=== PATIENT | female | born 1955 | race Caucasian/White ===

== ENCOUNTER → 2018-02-26 12:04 | Outpatient (CLI) | payer MEDICAID, SELFPAY ==
[2018-02-26 12:12] LABS: Red Blood Cells-Urine 0 SEEN /hpf (0-5)
[2018-02-26 14:50] LABS: Absolute Lymphocyte Count 7.61 X10^3/ul (0.83-4.51); Absolute Neutrophil Count 5.3 X10^3/uL (2.0-7.7); Basophil# 0.06 X10^3/uL; Basophil% 0.4 % (0-1); Eosinophil# 0.37 X10^3/uL; Eosinophils% 2.6 % (0-5); Hematocrit 38.8 % (37-47); Hemoglobin 12.2 g/dl (12.0-15.0); Lymphocyte # 7.61 X10^3/ul (4.0); Lymphocyte % 53.8 % (19-41); Mean Corp Hgb Conc 31.4 g/gl (32-36); Mean Corpuscular Hgb 28.5 pg (27.0-32.0); Mean Corpuscular Volume 90.7 fL (81-99); Mean Platelet Vol. 10.8 fl (6.2-12.0); Monocyte# 0.78 X10^3/uL; Monocyte% 5.5 % (0-10); Neutrophil # 5.31 X10^3/uL (2.7-7.7); Neutrophil % 37.6 % (47-70); Platelet Count 271 K/mm3 (150-450); RBC Distribution Width CV 15.8 % (11.6-14.6); RBC Distribution Width SD 51.7 fl (35.1-43.9); Red Blood Count 4.28 M/mm3 (4.2-5.4); White Blood Count 14.2 K/mm3 (4.4-11.0)
[2018-02-26 14:54] LABS: Color, Urine Yellow (Yellow); Glucose, Dipstick Normal (Normal); Ketone-Dipstick 5 mg/dl (Negative); Leukocyte Esterase-Dipstick 100 /ul (Negative); Nitrite-Dipstick Negative (Negative); Occult Blood-Urine 10 /ul (Negative); Protein-Dipstick 30 mg/dl (Negative); Specific Gravity, Urine 1.025 (1.002-1.030); Urine Bilirubin Dipstick Negative (Negative); Urine Clarity Sl. Cloudy (Clear); Urine Urobilinogen 1 mg/dl (Normal)
[2018-02-26 14:56] LABS: Differential Indicated SCAN CRITERIA MET; POSITIVE COUNT NO; POSITIVE DIFFERENTIAL YES; POSITIVE MORPHOLOGY NO
[2018-02-26 15:03] LABS: ALB/GLOB Ratio 0.9 RATIO (0.9-2.4); AST(SGOT) 17 U/L (15-37); Alanine Aminotransfer ALT/SGPT 22 U/L (13-56); Albumin, Serum 3.6 g/dL (3.2-5.0); Alkaline Phosphatase 112 U/L (45-117); Anion Gap 7 (5-15); BUN 12 mg/dL (7-18); BUN/Creat Ratio 13.1 RATIO (10-20); Calcium,Total 8.4 mg/dL (8.5-10.1); Chloride 106 mmol/L (98-107); Cholesterol 196 mg/dL (200); Creatinine, Serum 0.92 mg/dL (0.55-1.02); EST Glomerular Filtration Rate 66 mL/min (>60); Est Glom Filt Rate - Afr Amer 80 mL/min (>60); Globulin 3.8 g/dL (2.2-4.2); Glucose 78 mg/dL (74-106); High Density Lipoprotein 57 mg/dL; Potassium 3.7 mmol/L (3.5-5.1); Protein, Total 7.4 g/dL (6.4-8.2); Sodium Level 139 mmol/L (136-145); Thyroid Stim Hormone (TSH) 0.67 uIU/mL (0.358-3.74); Triglycerides 196 mg/dL; Very Low Density Lipoprotein 39 mg/dL (5-40)
[2018-02-26 15:17] LABS: Bacteria 1+ /hpf (None Seen); Calcium Oxalate Crystals Ur 3+ /hpf (<or=2+); Hyaline Cast 0-5 SEEN /lpf (0-5); Mucous, Urine 2+ /hpf (<or=2+); Squamous Epithelial Cells - UA 0-5 SEEN /hpf (5-10); White Blood Cells 0-5 SEEN /hpf (0-5)
== END ==
PROVIDERS: Visit Provider Family Medicine
DX: E78.5 Hyperlipidemia, unspecified (principal); I10 Essential (primary) hypertension; Z72.0 Tobacco use
CPT/HCPCS: 36415; 80053; 80061; 81001; 84443; 85025

== ENCOUNTER → 2018-07-02 09:57 | Outpatient (CLI) | payer OTHER, MEDICAID, SELFPAY ==
[2018-07-02 10:22] LABS: Mucous, Urine 0 SEEN /hpf (<or=2+)
[2018-07-02 10:58] LABS: Color, Urine Yellow (Yellow); Glucose, Dipstick Normal (Normal); Ketone-Dipstick Negative (Negative); Leukocyte Esterase-Dipstick 100 /ul (Negative); Nitrite-Dipstick Negative (Negative); Occult Blood-Urine 10 /ul (Negative); Protein-Dipstick 15 mg/dl (Negative); Urine Bilirubin Dipstick Negative (Negative); Urine Clarity Sl. Cloudy (Clear); Urine Urobilinogen Normal (Normal)
[2018-07-02 11:04] LABS: Bacteria 1+ /hpf (None Seen); Red Blood Cells-Urine 0-5 SEEN /hpf (0-5); Squamous Epithelial Cells - UA 0-5 SEEN /hpf (5-10); White Blood Cells 10-25 SEEN /hpf (0-5)
[2018-07-02 11:06] LABS: Absolute Lymphocyte Count 9.89 X10^3/ul (0.83-4.51); Absolute Neutrophil Count 5.7 X10^3/uL (2.0-7.7); Basophil# 0.04 X10^3/uL; Basophil% 0.2 % (0-1); Eosinophil# 0.47 X10^3/uL; Eosinophils% 2.8 % (0-5); Hematocrit 36.5 % (37-47); Hemoglobin 11.6 g/dl (12.0-15.0); Lymphocyte # 9.89 X10^3/ul (4.0); Lymphocyte % 58.5 % (19-41); Mean Corp Hgb Conc 31.8 g/gl (32-36); Mean Corpuscular Hgb 28.6 pg (27.0-32.0); Mean Corpuscular Volume 89.9 fL (81-99); Monocyte# 0.76 X10^3/uL; Monocyte% 4.5 % (0-10); Neutrophil # 5.73 X10^3/uL (2.7-7.7); Neutrophil % 33.9 % (47-70); Platelet Count 289 K/mm3 (150-450); RBC Distribution Width CV 15.5 % (11.6-14.6); RBC Distribution Width SD 50.5 fl (35.1-43.9); Red Blood Count 4.06 M/mm3 (4.2-5.4); White Blood Count 16.9 K/mm3 (4.4-11.0)
[2018-07-02 11:07] LABS: Differential Indicated SCAN CRITERIA MET; POSITIVE COUNT NO; POSITIVE DIFFERENTIAL YES; POSITIVE MORPHOLOGY NO
[2018-07-02 11:46] LABS: AST(SGOT) 14 U/L (15-37); Alanine Aminotransfer ALT/SGPT 18 U/L (13-56); Albumin, Serum 3.5 g/dL (3.2-5.0); Alkaline Phosphatase 90 U/L (45-117); Anion Gap 6 (5-15); BUN 17 mg/dL (7-18); BUN/Creat Ratio 18.3 RATIO (10-20); Calcium,Total 9.1 mg/dL (8.5-10.1); Chloride 105 mmol/L (98-107); Cholesterol 117 mg/dL (200); Creatinine, Serum 0.93 mg/dL (0.55-1.02); EST Glomerular Filtration Rate 65 mL/min (>60); Est Glom Filt Rate - Afr Amer 79 mL/min (>60); Globulin 3.4 g/dL (2.2-4.2); Glucose 81 mg/dL (74-106); High Density Lipoprotein 56 mg/dL; Potassium 4.6 mmol/L (3.5-5.1); Protein, Total 6.9 g/dL (6.4-8.2); Sodium Level 141 mmol/L (136-145); Triglycerides 80 mg/dL; Very Low Density Lipoprotein 16 mg/dL (5-40)
== END ==
PROVIDERS: Family Provider Family Medicine; PCP Family Medicine; Referring Provider Family Medicine; Visit Provider Family Medicine
DX: I10 Essential (primary) hypertension (principal); E78.5 Hyperlipidemia, unspecified; Z72.0 Tobacco use
CPT/HCPCS: 36415; 80053; 80061; 81001; 85025

== ENCOUNTER → 2018-08-06 | Outpatient (CLI) | payer OTHER, SELFPAY ==
[2018-08-06 13:12] LABS: Absolute Lymphocyte Count 7.76 X10^3/ul (0.83-4.51); Absolute Neutrophil Count 4.9 X10^3/uL (2.0-7.7); Basophil# 0.06 X10^3/uL; Basophil% 0.4 % (0-1); Eosinophil# 0.46 X10^3/uL; Eosinophils% 3.3 % (0-5); Hematocrit 37.1 % (37-47); Hemoglobin 11.8 g/dl (12.0-15.0); Lymphocyte # 7.76 X10^3/ul (4.0); Lymphocyte % 55.8 % (19-41); Mean Corp Hgb Conc 31.8 g/gl (32-36); Mean Corpuscular Hgb 28.9 pg (27.0-32.0); Mean Corpuscular Volume 90.9 fL (81-99); Mean Platelet Vol. 10.9 fl (6.2-12.0); Monocyte# 0.68 X10^3/uL; Monocyte% 4.9 % (0-10); Neutrophil # 4.91 X10^3/uL (2.7-7.7); Neutrophil % 35.3 % (47-70); Platelet Count 245 K/mm3 (150-450); RBC Distribution Width SD 49.7 fl (35.1-43.9); Red Blood Count 4.08 M/mm3 (4.2-5.4); White Blood Count 13.9 K/mm3 (4.4-11.0)
[2018-08-06 14:54] LABS: Differential Indicated SCAN CRITERIA MET; POSITIVE COUNT NO; POSITIVE DIFFERENTIAL YES; POSITIVE MORPHOLOGY NO
[2018-08-06 15:06] LABS: Platelet Estimate ADEQUATE (ADEQ); Red Cell Morphology NORM C+C NORMAL (NORM C&C)
[2018-08-07 14:38] LABS: Pathologist Review Reviewed
== END | disposition home or self-care (01) ==
LOC: MTLAB 10:34
PROVIDERS: Family Provider Family Medicine; PCP Family Medicine; Referring Provider Family Medicine; Visit Provider Family Medicine
DX: D72.829 Elevated white blood cell count, unspecified (principal)
CPT/HCPCS: 36415; 85025

== ENCOUNTER → 2019-02-07 | Outpatient (CLI) | payer OTHER, SELFPAY ==
[2019-02-07 08:56] LABS: Mucous, Urine 0 SEEN /hpf (<or=2+)
[2019-02-07 09:21] LABS: Absolute Lymphocyte Count 12.15 X10^3/uL (0.83-4.51); Absolute Neutrophil Count 5.5 X10^3/uL (2.0-7.7); Basophil# 0.05 X10^3/uL; Basophil% 0.3 % (0-1); Eosinophil# 0.43 X10^3/uL; Eosinophils% 2.3 % (0-5); Hematocrit 38.2 % (37-47); Hemoglobin 12.1 g/dL (12.0-15.0); Lymphocyte # 12.15 X10^3/ul (4.0); Lymphocyte % 64.6 % (19-41); Mean Corp Hgb Conc 31.7 g/dL (32-36); Mean Corpuscular Hgb 28.7 pg (27.0-32.0); Mean Corpuscular Volume 90.7 fL (81-99); Mean Platelet Vol. 10.2 fl (6.2-12.0); Monocyte# 0.64 X10^3/uL; Monocyte% 3.4 % (0-10); NRBC Flagged by Analyzer 0 % (0-5); Neutrophil # 5.47 X10^3/uL (2.7-7.7); Neutrophil % 29.1 % (47-70); POSITIVE DIFFERENTIAL YES; POSITIVE MORPHOLOGY YES; Platelet Count 232 K/mm3 (150-450); RBC Distribution Width CV 15.1 % (11.6-14.6); RBC Distribution Width SD 50.3 fl (35.1-43.9); Red Blood Count 4.21 M/mm3 (4.2-5.4); White Blood Count 18.8 K/mm3 (4.4-11.0)
[2019-02-07 09:23] LABS: Color, Urine Yellow (Yellow); Glucose, Dipstick Normal (Normal); Ketone-Dipstick Negative (Negative); Leukocyte Esterase-Dipstick 500 /ul (Negative); Nitrite-Dipstick Negative (Negative); Occult Blood-Urine 25 /ul (Negative); Protein-Dipstick 30 mg/dl (Negative); Urine Bilirubin Dipstick Negative (Negative); Urine Clarity Clear (Clear); Urine Urobilinogen Normal (Normal)
[2019-02-07 09:24] LABS: Differential Indicated SCAN CRITERIA MET
[2019-02-07 09:30] LABS: Bacteria 1+ /hpf (None Seen); Red Blood Cells-Urine 0-5 SEEN /hpf (0-5); Squamous Epithelial Cells - UA 0-5 SEEN /hpf (5-10); White Blood Cells 25-50 SEEN /hpf (0-5)
[2019-02-07 09:49] LABS: Differential Comment SCANNED; Reactive Lymphocyte 1+
[2019-02-07 10:07] LABS: AST(SGOT) 16 U/L (15-37); Alanine Aminotransfer ALT/SGPT 18 U/L (13-56); Albumin, Serum 3.6 g/dL (3.2-5.0); Alkaline Phosphatase 82 U/L (45-117); Anion Gap 4 (5-15); BUN 16 mg/dL (7-18); BUN/Creat Ratio 15.7 RATIO (10-20); Chloride 109 mmol/L (98-107); Cholesterol 113 mg/dL (200); Creatinine, Serum 1.02 mg/dL (0.55-1.02); EST Glomerular Filtration Rate 58 mL/min (>60); Est Glom Filt Rate - Afr Amer 70 mL/min (>60); Globulin 3.5 g/dL (2.2-4.2); Glucose 94 mg/dL (74-106); High Density Lipoprotein 59 mg/dL; Potassium 4.4 mmol/L (3.5-5.1); Protein, Total 7.1 g/dL (6.4-8.2); Sodium Level 140 mmol/L (136-145); Triglycerides 66 mg/dL; Very Low Density Lipoprotein 13 mg/dL (5-40)
== END | disposition home or self-care (01) ==
LOC: LAB 08:37
PROVIDERS: Family Provider Family Medicine; PCP Family Medicine; Referring Provider Family Medicine; Visit Provider Family Medicine
DX: E78.5 Hyperlipidemia, unspecified (principal); I10 Essential (primary) hypertension; Z72.0 Tobacco use
CPT/HCPCS: 36415; 80053; 80061; 81001; 85025

== ENCOUNTER → 2019-02-11 | Outpatient (CLI) | payer OTHER, SELFPAY ==
[2019-02-11 12:23] LABS: Absolute Lymphocyte Count 10.95 X10^3/uL (0.83-4.51); Absolute Neutrophil Count 6.2 X10^3/uL (2.0-7.7); Basophil# 0.07 X10^3/uL; Basophil% 0.4 % (0-1); Eosinophil# 0.42 X10^3/uL; Eosinophils% 2.3 % (0-5); Hematocrit 37.9 % (37-47); Hemoglobin 12.2 g/dL (12.0-15.0); Lymphocyte # 10.95 X10^3/ul (4.0); Lymphocyte % 59.5 % (19-41); Mean Corp Hgb Conc 32.2 g/dL (32-36); Mean Corpuscular Hgb 29.2 pg (27.0-32.0); Mean Corpuscular Volume 90.7 fL (81-99); Mean Platelet Vol. 10.7 fl (6.2-12.0); Monocyte# 0.76 X10^3/uL; Monocyte% 4.1 % (0-10); NRBC Flagged by Analyzer 0 % (0-5); Neutrophil # 6.16 X10^3/uL (2.7-7.7); Neutrophil % 33.5 % (47-70); POSITIVE DIFFERENTIAL YES; POSITIVE MORPHOLOGY YES; Platelet Count 241 K/mm3 (150-450); RBC Distribution Width CV 15.1 % (11.6-14.6); Red Blood Count 4.18 M/mm3 (4.2-5.4); White Blood Count 18.4 K/mm3 (4.4-11.0)
[2019-02-11 12:25] LABS: Differential Indicated SCAN CRITERIA MET
[2019-02-11 12:54] LABS: Anion Gap 7 (5-15); BUN 16 mg/dL (7-18); BUN/Creat Ratio 15.4 RATIO (10-20); Calcium,Total 9.2 mg/dL (8.5-10.1); Chloride 106 mmol/L (98-107); Creatinine, Serum 1.04 mg/dL (0.55-1.02); EST Glomerular Filtration Rate 57 mL/min (>60); Est Glom Filt Rate - Afr Amer 69 mL/min (>60); Glucose 67 mg/dL (74-106); Potassium 4.4 mmol/L (3.5-5.1); Sodium Level 143 mmol/L (136-145)
== END | disposition home or self-care (01) ==
LOC: MFPLAB 10:46
PROVIDERS: Family Provider Family Medicine; PCP Family Medicine; Referring Provider Family Medicine; Visit Provider Family Medicine
DX: R94.4 Abnormal results of kidney function studies (principal); D72.829 Elevated white blood cell count, unspecified
CPT/HCPCS: 36415; 80048; 85025

== ENCOUNTER → 2019-09-12 | Outpatient (CLI) | payer OTHER, SELFPAY ==
[2019-09-12 08:45] LABS: Absolute Lymphocyte Count 14.26 X10^3/uL (0.83-4.51); Basophil# 0.08 X10^3/uL; Basophil% 0.4 % (0-1); Eosinophil# 0.52 X10^3/uL; Eosinophils% 2.4 % (0-5); Hematocrit 40.8 % (37-47); Hemoglobin 12.9 g/dL (12.0-15.0); Lymphocyte # 14.26 X10^3/ul (4.0); Lymphocyte % 65.6 % (19-41); Mean Corp Hgb Conc 31.6 g/dL (32-36); Mean Corpuscular Hgb 29.5 pg (27.0-32.0); Mean Corpuscular Volume 93.4 fL (81-99); Mean Platelet Vol. 10.4 fl (6.2-12.0); Monocyte# 0.81 X10^3/uL; Monocyte% 3.7 % (0-10); NRBC Flagged by Analyzer 0 % (0-5); Neutrophil # 6.01 X10^3/uL (2.7-7.7); Neutrophil % 27.7 % (47-70); POSITIVE DIFFERENTIAL YES; POSITIVE MORPHOLOGY YES; Platelet Count 257 K/mm3 (150-450); RBC Distribution Width CV 15.3 % (11.6-14.6); RBC Distribution Width SD 52.8 fl (35.1-43.9); Red Blood Count 4.37 M/mm3 (4.2-5.4); White Blood Count 21.7 K/mm3 (4.4-11.0)
[2019-09-12 09:00] LABS: ALB/GLOB Ratio 0.9 RATIO (0.9-2.4); AST(SGOT) 14 U/L (15-37); Alanine Aminotransfer ALT/SGPT 21 U/L (13-56); Albumin, Serum 3.6 g/dL (3.2-5.0); Alkaline Phosphatase 84 U/L (45-117); Anion Gap 6 (5-15); BUN 31 mg/dL (7-18); BUN/Creat Ratio 23.7 RATIO (10-20); Calcium,Total 8.9 mg/dL (8.5-10.1); Chloride 105 mmol/L (98-107); Cholesterol 128 mg/dL (200); Creatinine, Serum 1.31 mg/dL (0.55-1.02); EST Glomerular Filtration Rate 44 mL/min (>60); Est Glom Filt Rate - Afr Amer 53 mL/min (>60); Globulin 3.8 g/dL (2.2-4.2); Glucose 97 mg/dL (74-106); High Density Lipoprotein 54 mg/dL; Potassium 3.9 mmol/L (3.5-5.1); Protein, Total 7.4 g/dL (6.4-8.2); Sodium Level 140 mmol/L (136-145); Triglycerides 106 mg/dL; Very Low Density Lipoprotein 21 mg/dL (5-40)
[2019-09-12 09:18] LABS: Differential Indicated SCAN CRITERIA MET
[2019-09-12 09:25] LABS: Differential Comment SCANNED
[2019-09-12 09:26] LABS: Reactive Lymphocyte 2+
== END | disposition home or self-care (01) ==
LOC: LAB 07:55
PROVIDERS: PCP Family Medicine; Referring Provider Family Medicine; Visit Provider Family Medicine
DX: E78.5 Hyperlipidemia, unspecified (principal); I10 Essential (primary) hypertension; D72.820 Lymphocytosis (symptomatic)
CPT/HCPCS: 36415; 80053; 80061; 85025

== ENCOUNTER → 2019-09-17 16:41 | Outpatient (CLI) | payer OTHER, SELFPAY ==
[2019-09-18 15:31] LABS: Absolute Lymphocyte Count 12.65 X10^3/uL (0.83-4.51); Absolute Neutrophil Count 5.8 X10^3/uL (2.0-7.7); Basophil# 0.09 X10^3/uL; Basophil% 0.5 % (0-1); Eosinophil# 0.41 X10^3/uL; Eosinophils% 2.1 % (0-5); Hematocrit 39.9 % (37-47); Hemoglobin 12.4 g/dL (12.0-15.0); Lymphocyte # 12.65 X10^3/ul (4.0); Lymphocyte % 63.9 % (19-41); Mean Corp Hgb Conc 31.1 g/dL (32-36); Mean Corpuscular Hgb 29.4 pg (27.0-32.0); Mean Corpuscular Volume 94.5 fL (81-99); Monocyte# 0.81 X10^3/uL; Monocyte% 4.1 % (0-10); NRBC Flagged by Analyzer 0 % (0-5); Neutrophil # 5.78 X10^3/uL (2.7-7.7); Neutrophil % 29.1 % (47-70); POSITIVE DIFFERENTIAL YES; POSITIVE MORPHOLOGY YES; Platelet Count 256 K/mm3 (150-450); RBC Distribution Width CV 15.6 % (11.6-14.6); RBC Distribution Width SD 53.9 fl (35.1-43.9); Red Blood Count 4.22 M/mm3 (4.2-5.4); White Blood Count 19.8 K/mm3 (4.4-11.0)
[2019-09-18 18:25] LABS: Differential Indicated SCAN CRITERIA MET
[2019-09-18 18:26] LABS: Platelet Estimate ADEQUATE (ADEQ); Red Cell Morphology NORM C+C NORMAL (NORM C&C)
[2019-09-18 18:27] LABS: Smudge Cells 1+
[2019-09-21 12:11] LABS: Pathologist Review Reviewed
== END ==
PROVIDERS: PCP Family Medicine; Referring Provider Family Medicine; Visit Provider Family Medicine
DX: D72.820 Lymphocytosis (symptomatic) (principal)
CPT/HCPCS: 36415; 85025

== ENCOUNTER → 2019-09-29 | Outpatient (CLI) | payer OTHER, SELFPAY ==
--- NOTE | 2019-09-29 08:00 | US_ITS ---
STUDY: RENAL ULTRASOUND - COMPLETE REASON FOR EXAM: Female, 63 years old. CK elevated BUN/creatinine TECHNIQUE: Ultrasound evaluation of the kidneys was performed with real-time and static moreno-scale imaging. COMPARISON: None. FINDINGS: RIGHT KIDNEY: Normal location of the right kidney, which is normal in size. The right kidney measures 10.6 x 3.5 x 3.7 cm. There is a normal cortex of the right kidney. The renal cortex measures 1.2 cm. There is a simple 1.7 x 1.6 x 1.5 cm cyst. There are no right renal calculi. There is no right hydronephrosis. DISTAL RIGHT URETER: There is non-visualization of the distal right ureter. There is no demonstrated right ureterovesical junction calculus. There is a visualized right ureteral jet. LEFT KIDNEY: Normal location of the left kidney, which is normal in size. The left kidney measures 9.8 x 4.9 x 4.6 cm. There is a normal cortex of the left kidney. The renal cortex measures 1.3 cm. There is no left renal mass or cyst. There are no left renal calculi. There is no left hydronephrosis. DISTAL LEFT URETER: There is non-visualization of the distal left ureter. There is no demonstrated left ureterovesical junction calculus. There is a visualized left ureteral jet. AORTA: There is no elongation or tortuosity of the abdominal aorta. I.V.C.: The IVC is patent. BLADDER: The bladder is sonographically normal Incidental note is made of a 3 x 2 x 2.3 cm right ovarian cyst. US/Kidney and Bladder IMPRESSION: No obstructive uropathy or suspicious solid lesion. Simple right renal cyst, no specific follow-up is needed Cloth Trimmer Hand also noted a right ovarian cyst, given the patient''s age, follow-up dedicated pelvic ultrasound recommended for more thorough evaluation. Electronically Signed: Matty Villagomez MD at 9:06 EDT , Service support ,
== END | disposition home or self-care (01) ==
LOC: US 07:59
PROVIDERS: PCP Family Medicine; Referring Provider Family Medicine; Visit Provider Family Medicine
DX: N18.3 Chronic kidney disease, stage 3 (moderate) (principal)
CPT/HCPCS: 76770

== ENCOUNTER → 2019-10-02 | Outpatient (CLI) | payer OTHER, SELFPAY ==
--- NOTE | 2019-10-02 14:59 | US_ITS ---
STUDY: ULTRASOUND OF THE FEMALE PELVIS - COMPLETE REASON FOR EXAM: Female, 63 years old. RT OVARIAN CYST LMP: TECHNIQUE: Transabdominal and Transvaginal TECHNICAL QUALITY: Adequate. COMPARISON: None. FINDINGS: The uterus is anteverted and is in a midline position. The uterus measures 6.6 x 3.9 x 2.5 cm. Normal uterine cervix. The endometrium measures 2 mm in thickness, and is hyperechoic. There is no demonstrated endometrial mass. There is no demonstrated myometrial mass. I.U.D. - The patient does not have an I.U.D. The right ovary is visualized. The right ovary measures 3.5 x 2.5 x 2.3 cm. Right ovary cyst measuring 3.0 x 2.1 x 2.1 cm. There is no visualized right adnexal mass or complex lesion. There is normal arterial and normal venous vascularity. The left ovary is visualized. The left ovary measures 1.4 x 1.1 x 0.8 cm. There is no left ovarian cyst or ovarian mass. There is no visualized left adnexal mass or complex lesion. There is normal arterial and normal venous vascularity. There is no fluid in the cul-de-sac. The pre void volume of the bladder was 191.6 ml. Polycystic ovary disease: No. US/Transvaginal Non- IMPRESSION: Right ovary cyst measuring 3.0 x 2.1 x 2.1 cm. Electronically Signed: Harley Montez MD at 21:04 EDT Tel , Service support ,
--- NOTE | 2019-10-02 14:59 | US_ITS ---
STUDY: ULTRASOUND OF THE FEMALE PELVIS - COMPLETE REASON FOR EXAM: Female, 63 years old. RT OVARIAN CYST LMP: TECHNIQUE: Transabdominal and Transvaginal TECHNICAL QUALITY: Adequate. COMPARISON: None. FINDINGS: The uterus is anteverted and is in a midline position. The uterus measures 6.6 x 3.9 x 2.5 cm. Normal uterine cervix. The endometrium measures 2 mm in thickness, and is hyperechoic. There is no demonstrated endometrial mass. There is no demonstrated myometrial mass. I.U.D. - The patient does not have an I.U.D. The right ovary is visualized. The right ovary measures 3.5 x 2.5 x 2.3 cm. Right ovary cyst measuring 3.0 x 2.1 x 2.1 cm. There is no visualized right adnexal mass or complex lesion. There is normal arterial and normal venous vascularity. The left ovary is visualized. The left ovary measures 1.4 x 1.1 x 0.8 cm. There is no left ovarian cyst or ovarian mass. There is no visualized left adnexal mass or complex lesion. There is normal arterial and normal venous vascularity. There is no fluid in the cul-de-sac. The pre void volume of the bladder was 191.6 ml. Polycystic ovary disease: No. US/Pelvic (Non ) IMPRESSION: Right ovary cyst measuring 3.0 x 2.1 x 2.1 cm. Electronically Signed: Harley Montez MD at 21:04 EDT Tel , Service support ,
== END | disposition home or self-care (01) ==
LOC: US 14:56
PROVIDERS: PCP Family Medicine; Referring Provider Family Medicine; Visit Provider Family Medicine
DX: N83.209 Unspecified ovarian cyst, unspecified side (principal)
CPT/HCPCS: 76830; 76856

== ENCOUNTER → 2019-10-05 | Outpatient (CLI) | payer OTHER, SELFPAY ==
--- NOTE | 2019-10-05 08:06 | RDU_ITS ---
Reason For Study: CKD Right Renal Artery Left Renal Artery Right renal artery ostium Left renal artery ostium 141.2/35.8 256.8/57.1 RSV/EDV. PSV/EDV. Right renal artery proximal Left renal artery proximal PSV/EDV 303.2/71.1 PSV/EDV. 94.9/24.2 . Right renal artery mid 188.8/40.3 Left renal artery mid 91.5/31 PSV/EDV. PSV/EDV . Right renal artery distal Left renal artery distal 63.3/21.5 112.3/39.3 PSV/EDV. PSV/EDV. Right RAR 3.72. Left RAR 1.73. Right Renal Parenchyma Left Renal Parenchyma Upper Pole Medula 35.2/14.3 Left upper pole medulla 29.8/9 PSV/EDV. PSV/EDV . Right upper pole medulla EDR 0.41 . Left upper pole medulla EDR 0.30 . Right upper pole medulla R.I. Left upper pole medulla R.I. 0.70 . 0.59 . UP Cortex 21.3/5.9 PSV/EDV. Upper Kasi Cortx 24.8/8.8 PSV/EDV. Left upper pole cortex EDR 0.28 . Right upper pole cortex EDR 0.35 . Left upper pole cortex R.I. 0.72 . Right upper pole cortex R.I. 0.65 . Left lower Pole medulla 33.5/9.6 Right lower Pole medulla 36.4/14.3 PSV/EDV . PSV/EDV . Left lower pole medulla EDR 0.29 . Right lower pole medulla EDR 0.39 . Left lower pole medulla R.I. 0.71 . Right lower pole medulla R.I. Lower Pole Cortx 21.3/5.9 PSV/EDV. 0.61 . Left lower pole cortex EDR 0.28 . Lower Pole Cortex 23.5/10 PSV/EDV. Left lower pole cortex R.I. 0.72 . Right lower pole cortex EDR 0.43 . Left Renal Hilar Right lower pole cortex R.I. 0.57 . LT Hilar avg 59.9/8.8 PSV/EDV . Right Renal Hilar Left hilar acceleration time 60 Right Hilar avg 37.6/12.5 PSV/EDV. m/sec. Right hilar acceleration time 30 Left Renal Dimensions m/sec. Left kidney size 9.37 cm . Right Renal Dimensions Left cortical dimension 1.28 cm . Right kidney size 10.26 cm . Right cortical dimension 1.32 cm . Aorta Proximal abdominal aorta 1.71 x 1.71 cm . Proximal abdominal aorta peak systolic velocity is 81.4 cm/sec . Distal abdominal aorta 1.91 x 2.12 cm . Distal abdominal aorta peak systolic velocity is 83.9 cm/sec . Interpretation Summary Dimensions of the intra-abdominal aorta appear normal, without evidence of aneurysmal dilatation. Right renal artery velocities are elevated. Left renal artery velocities are normal. Acceleration times are normal bilaterally. The right renal-aortic ratio is elevated. The left renal-aortic ratio is normal. There is evidence of hemodynamically significant stenosis on the right , greater than 60%. There is no evidence of left renal artery stenosis. Renovascular resistance appears normal on the right. Renovascular resistance appears elevated on the left. Cortical dimensions are bilaterally normal. Kidneys appear normal in size bilaterally. Ordering Physician: David Patel Referring Physician: David Patel Performed By: Alisa Franz RVT
== END | disposition home or self-care (01) ==
LOC: CVS 08:01
PROVIDERS: PCP Family Medicine; Referring Provider Family Medicine; Visit Provider Family Medicine
DX: N18.3 Chronic kidney disease, stage 3 (moderate) (principal)
CPT/HCPCS: 93975

== ENCOUNTER → 2019-12-22 | Outpatient (CLI) | payer OTHER, SELFPAY ==
[2019-11-30 14:36] VITALS: BMI 26.6
[2019-12-22 16:32] LABS: Mucous, Urine 0 SEEN /hpf (<or=2+); Red Blood Cells-Urine 0 SEEN /hpf (0-5)
[2019-12-22 17:43] LABS: Absolute Lymphocyte Count 11.63 X10^3/uL (0.83-4.51); Absolute Neutrophil Count 5.7 X10^3/uL (2.0-7.7); Basophil# 0.07 X10^3/uL; Basophil% 0.4 % (0-1); Eosinophil# 0.45 X10^3/uL; Eosinophils% 2.4 % (0-5); Hematocrit 37.9 % (37-47); Lymphocyte # 11.63 X10^3/ul (4.0); Lymphocyte % 62.3 % (19-41); Mean Corp Hgb Conc 31.7 g/dL (32-36); Mean Corpuscular Hgb 29.6 pg (27.0-32.0); Mean Corpuscular Volume 93.3 fL (81-99); Mean Platelet Vol. 11.3 fl (6.2-12.0); Monocyte# 0.75 X10^3/uL; NRBC Flagged by Analyzer 0 % (0-5); Neutrophil # 5.73 X10^3/uL (2.7-7.7); Neutrophil % 30.6 % (47-70); POSITIVE DIFFERENTIAL YES; POSITIVE MORPHOLOGY YES; Platelet Count 252 K/mm3 (150-450); RBC Distribution Width CV 13.5 % (11.6-14.6); Red Blood Count 4.06 M/mm3 (4.2-5.4); White Blood Count 18.7 K/mm3 (4.4-11.0)
[2019-12-22 17:46] LABS: Color, Urine Yellow (Yellow); Glucose, Dipstick Normal (Normal); Ketone-Dipstick Negative (Negative); Leukocyte Esterase-Dipstick 100 /ul (Negative); Nitrite-Dipstick Positive (Negative); Occult Blood-Urine 10 /ul (Negative); Protein-Dipstick 30 mg/dl (Negative); Specific Gravity, Urine 1.015 (1.002-1.030); Urine Bilirubin Dipstick Negative (Negative); Urine Clarity Sl. Cloudy (Clear); Urine Urobilinogen 1 mg/dl (Normal)
[2019-12-22 17:53] LABS: AST(SGOT) 17 U/L (15-37); Alanine Aminotransfer ALT/SGPT 20 U/L (13-56); Albumin, Serum 3.7 g/dL (3.2-5.0); Alkaline Phosphatase 84 U/L (45-117); Anion Gap 5 (5-15); BUN 22 mg/dL (7-18); Chloride 105 mmol/L (98-107); EST Glomerular Filtration Rate 53 mL/min (>60); Est Glom Filt Rate - Afr Amer 64 mL/min (>60); Globulin 3.8 g/dL (2.2-4.2); Glucose 91 mg/dL (74-106); Potassium 3.9 mmol/L (3.5-5.1); Protein, Total 7.5 g/dL (6.4-8.2); Sodium Level 139 mmol/L (136-145)
[2019-12-22 17:59] LABS: White Blood Cells 10-25 SEEN /hpf (0-5)
[2019-12-22 18:00] LABS: Bacteria 3+ /hpf (None Seen); Squamous Epithelial Cells - UA 0-5 SEEN /hpf (5-10)
[2019-12-22 18:22] LABS: Protein, Urine (Random) 53.4 mg/dL (<11.9); Protein:Creat Ratio 366 mg/g CRE (0-200)
[2019-12-22 18:38] LABS: Vitamin D,25 Hydroxy 31.2 ng/mL
[2019-12-22 18:52] LABS: Differential Indicated SCAN CRITERIA MET
[2019-12-22 19:18] LABS: Platelet Estimate ADEQUATE (ADEQ); Reactive Lymphocyte 1+; Red Cell Morphology N CHROM NORMAL (NORM C&C)
[2019-12-22 19:19] LABS: Anisocytosis RARE; Macrocytosis RARE
[2019-12-23 08:37] LABS: PTHIN 38.1 pg/mL (18.4-80.1)
[2019-12-23 13:41] LABS: Pathologist Review Reviewed
== END | disposition home or self-care (01) ==
LOC: MFPLAB 16:30
PROVIDERS: PCP Family Medicine; Referring Provider Family Medicine; Visit Provider Family Medicine
DX: I12.9 Hypertensive chronic kidney disease with stage 1 through stage 4 chronic kidney disease, or unspecified chronic kidney disease (principal); N18.3 Chronic kidney disease, stage 3 (moderate)
CPT/HCPCS: 36415; 80053; 81001; 82306; 82570; 83970; 84156; 85025

== ENCOUNTER → 2019-12-24 | Outpatient (CLI) | payer OTHER, SELFPAY ==
[2019-11-30 14:36] VITALS: BMI 26.6
--- NOTE | 2019-12-24 18:27 | US_ITS ---
STUDY: ULTRASOUND OF THE FEMALE PELVIS - COMPLETE REASON FOR EXAM: Female, 64 years old. F/U RTO CYST LMP: Postmenopausal. TECHNIQUE: Transabdominal and Transvaginal TECHNICAL QUALITY: Adequate. COMPARISON: Comparison is made with prior study dated 10/02/2019. FINDINGS: The uterus is anteverted and is in a midline position. The uterus measures 6.9 cm x 4.6 cm x 2.3 cm. Normal uterine cervix. The endometrium measures 2.0 mm in thickness, and is hyperechoic. There is no demonstrated endometrial mass. There is no demonstrated myometrial mass. I.U.D. - The patient does not have an I.U.D. The right ovary is visualized. The right ovary measures 4.1 cm x 3 cm x 2.7 cm. There is a 3.1 cm x 2.4 cm x 2.3 cm simple cyst. This is essentially unchanged. There is no visualized right adnexal mass or complex lesion. There is normal arterial and normal venous vascularity. The left ovary is non-visualized. There is no fluid in the cul-de-sac. The pre void volume of the bladder was 105 ml. Polycystic ovary disease: No. US/Pelvic (Non ) IMPRESSION: Stable 3.1 cm x 2.4 cm x 2.3 cm right ovarian cyst. Electronically Signed: Dale Galvan, at 8:56 EDT , Service support ,
--- NOTE | 2019-12-24 18:40 | US_ITS ---
STUDY: ULTRASOUND OF THE FEMALE PELVIS - COMPLETE REASON FOR EXAM: Female, 64 years old. F/U RTO CYST LMP: Postmenopausal. TECHNIQUE: Transabdominal and Transvaginal TECHNICAL QUALITY: Adequate. COMPARISON: Comparison is made with prior study dated 10/02/2019. FINDINGS: The uterus is anteverted and is in a midline position. The uterus measures 6.9 cm x 4.6 cm x 2.3 cm. Normal uterine cervix. The endometrium measures 2.0 mm in thickness, and is hyperechoic. There is no demonstrated endometrial mass. There is no demonstrated myometrial mass. I.U.D. - The patient does not have an I.U.D. The right ovary is visualized. The right ovary measures 4.1 cm x 3 cm x 2.7 cm. There is a 3.1 cm x 2.4 cm x 2.3 cm simple cyst. This is essentially unchanged. There is no visualized right adnexal mass or complex lesion. There is normal arterial and normal venous vascularity. The left ovary is non-visualized. There is no fluid in the cul-de-sac. The pre void volume of the bladder was 105 ml. Polycystic ovary disease: No. US/Transvaginal Non- IMPRESSION: Stable 3.1 cm x 2.4 cm x 2.3 cm right ovarian cyst. Electronically Signed: Dale Galvan, at 8:56 EDT , Service support ,
== END | disposition home or self-care (01) ==
LOC: US 18:27
PROVIDERS: PCP Family Medicine; Referring Provider Obstetrics & Gynecology; Visit Provider Obstetrics & Gynecology
DX: N83.291 Other ovarian cyst, right side (principal)
CPT/HCPCS: 76830; 76856

== ENCOUNTER → 2020-01-23 | Outpatient (CLI) | payer OTHER, SELFPAY ==
[2019-11-30 14:36] VITALS: BMI 26.6
[2020-01-23 08:57] LABS: Absolute Lymphocyte Count 10.48 X10^3/uL (0.83-4.51); Absolute Neutrophil Count 4.4 X10^3/uL (2.0-7.7); Basophil# 0.07 X10^3/uL; Basophil% 0.4 % (0-1); Eosinophil# 0.48 X10^3/uL; Hemoglobin 12.4 g/dL (12.0-15.0); Lymphocyte # 10.48 X10^3/ul (4.0); Lymphocyte % 64.9 % (19-41); Mean Corpuscular Hgb 29.1 pg (27.0-32.0); Mean Corpuscular Volume 93.9 fL (81-99); Mean Platelet Vol. 10.8 fl (6.2-12.0); Monocyte% 4.3 % (0-10); NRBC Flagged by Analyzer 0 % (0-5); Neutrophil # 4.38 X10^3/uL (2.7-7.7); Neutrophil % 27.2 % (47-70); POSITIVE DIFFERENTIAL YES; POSITIVE MORPHOLOGY YES; Platelet Count 257 K/mm3 (150-450); RBC Distribution Width CV 14.7 % (11.6-14.6); RBC Distribution Width SD 51.2 fl (35.1-43.9); Red Blood Count 4.26 M/mm3 (4.2-5.4); White Blood Count 16.1 K/mm3 (4.4-11.0)
[2020-01-23 09:18] LABS: Anion Gap 5 (5-15); BUN 20 mg/dL (7-18); BUN/Creat Ratio 18.2 RATIO (10-20); Calcium,Total 8.8 mg/dL (8.5-10.1); Chloride 107 mmol/L (98-107); EST Glomerular Filtration Rate 53 mL/min (>60); Est Glom Filt Rate - Afr Amer 64 mL/min (>60); Glucose 91 mg/dL (74-106); Potassium 4.2 mmol/L (3.5-5.1); Sodium Level 141 mmol/L (136-145)
[2020-01-23 09:23] LABS: Differential Indicated SCAN CRITERIA MET
[2020-01-23 10:25] LABS: Atypical Lymphocyte 1+ %; Platelet Estimate ADEQUATE (ADEQ)
[2020-01-25 03:53] LABS: Cancer Antigen 125 7.1 U/mL (0.0-38.1)
== END | disposition home or self-care (01) ==
LOC: LAB 08:14
PROVIDERS: PCP Family Medicine; Referring Provider Obstetrics & Gynecology; Visit Provider Obstetrics & Gynecology
DX: N83.209 Unspecified ovarian cyst, unspecified side (principal); R94.4 Abnormal results of kidney function studies; D72.829 Elevated white blood cell count, unspecified
CPT/HCPCS: 36415; 80048; 85025; 86304

== ENCOUNTER → 2020-05-30 | Outpatient (CLI) | payer OTHER, SELFPAY ==
[2020-05-30 14:04] VITALS: BMI 28.3
[2020-06-02 15:44] LABS: HPV APTIMA, High Risk Negative (Negative)
== END | disposition home or self-care (01) ==
LOC: LABSPEC 17:03
PROVIDERS: PCP Family Medicine; Referring Provider Obstetrics & Gynecology; Visit Provider Obstetrics & Gynecology
DX: Z12.4 Encounter for screening for malignant neoplasm of cervix (principal)
CPT/HCPCS: 87624; 88175; G0145

== ENCOUNTER → 2020-05-31 14:19 | Outpatient (CLI) | payer OTHER, SELFPAY ==
[2019-11-30 14:36] VITALS: BMI 26.6
[2020-05-30 14:04] VITALS: BMI 28.3
--- NOTE | 2020-05-31 14:21 | BI_ITS ---
MAMMOGRAPHY - BILATERAL SCREENING REASON FOR EXAM: Female, 64 years old. Routine annual screening examination. PERTINENT HISTORY: Non-contributory. TECHNIQUE: Digital bilateral breast conor (3D mammographic acquisition) in the CC and MLO projections. 2-D mediolateral oblique (MLO) and craniocaudad (CC) views of both breasts were obtained. CAD: Full Field Digital Mammography with Computer Added Detection was performed. COMPARISON: No comparison mammograms available at this time. If any prior films become available, an addendum to this report can be generated. FINDINGS: Breast Composition: There are scattered areas of fibroglandular density. There are no dominant masses or suspicious calcifications. Small benign-appearing bilateral axillary lymph nodes. No other significant abnormalities are identified. BI/SCRN MAMM (CAD)W/CONOR BILAT IMPRESSION: Negative screening mammogram. Yearly followup mammogram recommended. (A) ASSESSMENT CATEGORY: BIRADS Category 2: Benign. A letter regarding these results will be sent to the patient by the facility within 30 days. Approximately 10% of breast cancers are not detected by mammography. A normal mammogram should not delay biopsy of a clinically suspicious abnormality. [id number] Electronically Signed: Dale Galvan MD at 15:50 EST , Service support ,
--- NOTE | 2020-05-31 14:34 | BD_ITS ---
STUDY: DUAL ENERGY X-RAY ABSORPTIOMETRY / DXA REASON FOR EXAM: Female, 64 years old. SENIOR HRIS ANALYST -- SMOKER -- USES STEROID INHALER PRN -- TAKE SHCTZ -- TAKES MULTIVITAMIN -- DOES MODERATE AMOUNT OF EXERCISE -- HX OF RIGHT WRIST FX -- KHOI OF 3 INCHES TECHNIQUE: Bone Mineral Density (BMD) measurements of lumbar spine and bilateral hips were obtained. COMPARISON: None. FINDINGS: Lumbar Spine (L1-L4): g/cm2 (1.086) / T-score (-1.0) / Z-score (0.6) Findings are suggestive of normal bone density with a low fracture risk. Left Femur Total: g/cm2 (0.835) / T-score (-1.4) / Z-score (-0.2) Left Femoral Neck: g/cm2 (0.857) / T-score (-1.3) / Z-score (0.1) Right Femur Total: g/cm2 (0.815) / T-score (-1.5) / Z-score (-0.4) Right Femoral Neck: g/cm2 (0.776) / T-score (-1.9) / Z-score (-0.5) BD/Dexa Bone Density Study IMPRESSION: The patient is considered osteopenic as outlined below according to World Rashid Organization (WHO) criteria with a moderate fracture risk. Reference Information: The T-score is the number of standard deviations above or below the standard which is normal for young adults at their peak bone mineral density. The World Health Organization (WHO) interprets the T-scores as follows: Above -1 Normal bone density Between -1 and -2.5 Osteopenia Equal to / or below -2.5 Osteoporosis As a practical clinical guideline, osteopenia may be graded as follows: Mild -1 through -1.5 Moderate -1.6 through -2.0 Severe -2.1 through -2.4 The Z-score is the number of standard deviations above or below age-matched controls. A Z-score of less than -1.5 would be considered abnormal. References: 1. NIH Osteoporosis and Related Bone Diseases www osteo.org 2. International Society for Clinical Densitometry www iscd.org 3. National Osteoporosis Foundation www nof.org Electronically Signed: Dale Galvan MD at 14:26 EST , Service support ,
== END ==
PROVIDERS: PCP Family Medicine; Referring Provider Family Medicine; Visit Provider Family Medicine
DX: Z78.0 Asymptomatic menopausal state (principal); Z12.31 Encounter for screening mammogram for malignant neoplasm of breast
CPT/HCPCS: 77063; 77067; 77080

== ENCOUNTER 2020-06-07 06:14 | Day surgery (SDC) | payer OTHER, SELFPAY ==
[2019-11-30 14:36] VITALS: BMI 26.6
[2020-05-30 14:04] VITALS: BMI 28.3
--- NOTE | 2020-06-07 | COLBX_PTH ---
PATIENT: FIFI DELANEY LOC: EN U#:[id number] AGE/SX: 64/F ROOM: RE06/07/[address]: Dr. Job Moreno MD : 1955 BED: DIS: 06/07/2020 SPEC #: [id number] RECD: 06/07/20 11:31 STATUS: JAMES WALL #: [id number] MARY: 06/07/20 00:[address]: Job Moreno DEPT: SURGICAL PATHOLOGY RECD BY: Alfredo Vazquez ENTERED: 06/07/20 13:09 SP TYPE: COLON BX DARYL DR: Dr. David Patel MD Tissues: A - Transverse colon B - Rectum, NOS Procedures: Surgery Specimen Level IV HEADER OPERATION: Colonoscopy - open access (MOD) PRE-OP DIAGNOSIS: Screening TISSUE SUBMITTED: A - Biopsy of mid transverse polyp, B - Biopsy of rectal polyp MICROSCOPIC DIAGNOSIS A. Mid transverse colon polyp, biopsy: Tubular adenoma. B. Rectal polyp, biopsy: Fragments of colonic mucosa, no pathologic diagnosis. MARION:lauren 06/08/2020 MICROSCOPIC DESCRIPTION Slides are reviewed. GROSS DESCRIPTION A - Received in fixative is one container labeled with the patient's name and designated biopsy of mid transverse polyp. The specimen consists of one irregular fragment of light mccall soft tissue that measures 0.3 x 0.3 x 0.1 cm. The specimen is totally submitted in one cassette. B - Received in fixative is one container labeled with the patient's name and designated biopsy of rectal polyp. The specimen consists of two irregular fragments of light mccall soft tissue that in aggregate measure 0.4 x 0.3 x 0.1 cm. The specimen is totally submitted in one cassette. / MARION:lauren 06/07/20 TC:1 [facility]: [id number] x2
[2020-06-07 06:47] VITALS: BP 135/78; PULSE 62; RESP 16; TEMP 36.8; O2SAT 96; BMI 27.7
[2020-06-07] MEDS: Lactated Ringers 1,000 ML 100 ML IV (06:51)
--- NOTE | 2020-06-07 07:44 | PCM.HP.STD ---
Problem List (1) Screening for intestinal cancer Status: Acute History of Present Illness Date of Admission: 06/07/20 The patient is a 64 year old F who presents for screening colonoscopy today. She has a family history of a sister who had rectal cancer. Patient thinks her previous scope was 5 years ago. No bright red blood per rectum or melena. No abdominal pain. No unexpected weight loss. No history of deep venous thrombosis. Does have hypertension is on antihypertensives Past Medical History Medical History: Medical History (Last Reviewed 11/30/19 @ 14:34 by Adilia Darden) Essential hypertension (Acute) I10 Renal artery stenosis (Acute) I70.1 Depression with anxiety F41.8 Hemorrhoids K64.9 History of stent insertion of renal artery Z98.890 Renal artery stenosis I70.1 COPD (chronic obstructive pulmonary disease) J44.9 Hypertension I10 Allergies No Known Allergies Allergy (Verified 06/07/20 06:27) Home Medications: Ambulatory Orders Medication Instructions Recorded albuterol sulfate 90 mcg/actuation 2 puff INHALATION Q4H PRN g 10/20/19 aerosol inhaler aspirin 81 mg tablet,delayed 81 mg PO DAILY 10/20/19 release carvedilol 25 mg tablet 25 mg PO BID 10/20/19 hydrochlorothiazide 12.5 mg capsule 12.5 mg PO DAILY 10/20/19 hydroxyzine HCl 25 mg tablet 25 mg PO TID PRN 10/20/19 lisinopril 20 mg tablet 20 mg PO DAILY 10/20/19 rosuvastatin 40 mg tablet 40 mg PO QHS 10/20/19 sertraline 100 mg tablet 100 mg PO DAILY 10/20/19 Surgical History: Surgical History (Last Reviewed 11/30/19 @ 14:34 by Adilia Darden) History of tubal ligation Z98.51 Smoking Status: Current every day smoker Review of Systems Constitutional: Denies: Fever, Night Sweats Cardiovascular: Denies: Chest Pain Respiratory: Denies: Cough, Shortness of Breath Gastrointestinal: Denies: Abdominal Pain, Hematochezia, Melena Endocrine: Denies: Change in Body Habitus VTE Information - Inpt Only VTE Present on Admission: No - Physical Exam Vitals/I&O's: Vital Signs Temp Pulse Resp BP Pulse Ox 98.2 F 62 16 135/78 H 96 06/07/20 06:47 06/07/20 06:47 06/07/20 06:47 06/07/20 06:47 06/07/20 06:47 Oxygen Delivery Method Room Air Weight: 171 lb 15.369 oz Body Mass Index (BMI) 27.7 General: Alert, Oriented x3, Cooperative Oral: Moist Mucosa Neck: Supple Lungs: Clear to auscultation, Normal air movement Cardiovascular: Regular rate, Regular Rhythm Abdomen: Bowel Sounds Present, Soft, Non Tender Extremities: No Calf Tenderness Psych/Mental Status: Normal Affect Microbiology Past 72 Hours 06/06/20 11:10 Interface Orders SARS-CoV-2 Antigen (Rapid) - Final Current Medications Lactated Ringer's () 1,000 mls @ 100 mls/hr IV .Q10H FELIX Last Admin: 06/07/20 06:51 Dose: 100 mls/hr Documented by: Assessment/Plan All Active Problems (Last Reviewed 11/30/19 @ 14:34 by Adilia Darden) Screening for intestinal cancer (Acute) Essential hypertension (Acute) Renal artery stenosis (Acute) Patient with a sister who had rectal cancer. I propose for her colonoscopy with possible biopsy or polypectomy is indicated. She is aware of the technique, benefit, risk, alternatives. She has had an opportunity to ask and have questions answered. She presents via open access today. We will proceed as noted. Job Moreno M.D., F.A.C.S.
[2020-06-07 08:10] VITALS: BP 113/61; BP 117/67; BP 131/74; BP 133/67; BP 135/78; BP 135/85; BP 159/81; BP 169/90; PULSE 61; RESP 16; TEMP 36.2; O2SAT 100; O2SAT 98
[2020-06-07 08:15] VITALS: BP 106/65; BP 135/78; PULSE 60; RESP 16; O2SAT 97
--- NOTE | 2020-06-07 08:16 | OP.COLON_ITS ---
Patient Name: Melanie Sandhu Procedure Date: 06/07/2020 7:39 AM Date of : 1955 Age: 64 Procedure: Colonoscopy Indications: Family history of anal canal cancer in a first-degree relative Providers: Job Moreno MD Referring MD: David Patel Medicines: Midazolam 3.5 mg IV, Meperidine 100 mg IV Patient Profile: Last Colonoscopy: 5 years ago. Complications: No immediate complications. Procedure: Pre-Anesthesia Assessment: - Prior to the procedure, a History and Physical was performed, and patient medications and allergies were reviewed. The patient's tolerance of previous anesthesia was also reviewed. The risks and benefits of the procedure and the sedation options and risks were discussed with the patient. All questions were answered, and informed consent was obtained. Prior Anticoagulants: The patient has taken no previous anticoagulant or antiplatelet agents. ASA Grade Assessment: II - A patient with mild systemic disease. After reviewing the risks and benefits, the patient was deemed in satisfactory condition to undergo the procedure. After I obtained informed consent, the scope was passed under direct vision. Throughout the procedure, the patient's blood pressure, pulse, and oxygen saturations were monitored continuously. The pediatric colonoscope was introduced through the anus and advanced to the cecum, identified by appendiceal orifice and ileocecal valve. The colonoscopy was performed without difficulty. The patient tolerated the procedure well. The quality of the bowel preparation was good. The ileocecal valve and the appendiceal orifice were photographed. Moderate Sedation: Moderate (conscious) sedation was personally administered by the endoscopist. The following parameters were monitored: oxygen saturation, heart rate, blood pressure, and response to care. Total physician intraservice time was 15 minutes. Scope In: 7:52:13 AM Scope Withdrawal Time 0 hours 8 minutes 31 seconds Scope Out: 8:07:16 AM Total Procedure Duration Time 0 hours 15 minutes 3 seconds Findings: Hemorrhoids were found on perianal exam. A 4 mm polyp was found in the mid transverse colon. The polyp was sessile. The polyp was removed with a cold biopsy forceps. Resection and retrieval were complete. A 3 mm polyp was found in the rectum. The polyp was sessile. The polyp was removed with a cold biopsy forceps. Resection and retrieval were complete. A few diverticula were found in the sigmoid colon. Impression: - Hemorrhoids found on perianal exam. - One 4 mm polyp in the mid transverse colon, removed with a cold biopsy forceps. Resected and retrieved. - One 3 mm polyp in the rectum, removed with a cold biopsy forceps. Resected and retrieved. - Diverticulosis in the sigmoid colon. Recommendation: - Discharge patient to home. - Resume previous diet. - Continue present medications. - Repeat colonoscopy in 5 years for surveillance based on pathology results. - Telephone my office for pathology results in 1 week. Procedure Code(s): --- Professional --- 05792, Colonoscopy, flexible; with biopsy, single or multiple 30347, 59, Moderate sedation services provided by the same physician or other qualified health palliative care nurse practitioner performing the diagnostic or therapeutic service that the sedation supports, requiring the presence of an independent trained observer to assist in the monitoring of the patient's level of consciousness and physiological status; initial 15 minutes of intraservice time, patient age 5 years or older Diagnosis Code(s): --- Professional --- K64.9, Unspecified hemorrhoids D12.3, Benign neoplasm of transverse colon (hepatic flexure or splenic flexure) K62.1, Rectal polyp Z80.0, Family history of malignant neoplasm of digestive organs K57.30, Diverticulosis of large intestine without perforation or abscess without bleeding CPT copyright 2017 [employer]. All rights reserved. The codes documented in this report are preliminary and upon supreme court justice review may be revised to meet current compliance requirements. Job Moreno MD 06/07/2020 8:16:33 AM This report has been signed electronically. Number of Addenda: 0 Note Initiated On: 06/07/2020 7:39 AM
--- NOTE | 2020-06-07 08:16 | OP.CCLET_ITS ---
06/07/2020 David Patel [address] [place] [address] Re : Colonoscopy procedure for [facility] Dear Dr. Patel This procedure was performed on Sunday, June 07, 2020. My impressions and recommendations are as follows: Impressions : - Hemorrhoids found on perianal exam. - One 4 mm polyp in the mid transverse colon, removed with a cold biopsy forceps. Resected and retrieved. - One 3 mm polyp in the rectum, removed with a cold biopsy forceps. Resected and retrieved. - Diverticulosis in the sigmoid colon. Recommendations : - Discharge patient to home. - Resume previous diet. - Continue present medications. - Repeat colonoscopy in 5 years for surveillance based on pathology results. - Telephone my office for pathology results in 1 week. My findings are described in the full procedure note, which is enclosed. If I can be of further assistance, please feel free to contact me at Doctor phone number(s): Work: . Sincerely, Job Moreno MD 06/07/2020 8:16:33 AM This report has been signed electronically.
[2020-06-07 08:20] VITALS: BP 107/67; BP 135/78; PULSE 58; RESP 16; O2SAT 96
[2020-06-07 08:25] VITALS: BP 105/62; BP 135/78; PULSE 60; RESP 16; TEMP 36.3; O2SAT 97
[2020-06-07 08:59] VITALS: BP 135/78
== END 2020-06-07 08:59 | disposition home or self-care (01) ==
LOC: EN 06:16 → AC 06:17
PROVIDERS: PCP Family Medicine; Referring Provider Family Medicine; Visit Provider Surgery
PROC: 0DJD8ZZ Inspection of Lower Intestinal Tract, Via Natural or Artificial Opening Endoscopic (ICD-10-PCS; CPT 45378; principal; 2020-06-07 07:25)
DX: Z12.11 Encounter for screening for malignant neoplasm of colon (principal); D12.3 Benign neoplasm of transverse colon; K57.30 Diverticulosis of large intestine without perforation or abscess without bleeding; K64.9 Unspecified hemorrhoids; Z80.0 Family history of malignant neoplasm of digestive organs; I10 Essential (primary) hypertension; J44.9 Chronic obstructive pulmonary disease, unspecified; F41.9 Anxiety disorder, unspecified; F32.9 Major depressive disorder, single episode, unspecified; Z79.899 Other long term (current) drug therapy; Z20.822 Contact with and (suspected) exposure to COVID-19; F17.200 Nicotine dependence, unspecified, uncomplicated
CPT/HCPCS: 45380; 87426; 88305; 99152; 99153; C9803; J7120

== ENCOUNTER → 2020-06-25 08:56 | Outpatient (CLI) | payer OTHER, SELFPAY ==
[2020-06-07 06:47] VITALS: BMI 27.7
[2020-06-25 10:07] LABS: Absolute Lymphocyte Count 12.99 X10^3/uL (0.83-4.51); Absolute Neutrophil Count 4.4 X10^3/uL (2.0-7.7); Basophil# 0.08 X10^3/uL; Basophil% 0.4 % (0-1); Eosinophil# 0.54 X10^3/uL; Eosinophils% 2.9 % (0-5); Hematocrit 43.5 % (37-47); Hemoglobin 13.4 g/dL (12.0-15.0); Lymphocyte # 12.99 X10^3/ul (4.0); Lymphocyte % 69.5 % (19-41); Mean Corp Hgb Conc 30.8 g/dL (32-36); Mean Corpuscular Hgb 28.4 pg (27.0-32.0); Mean Corpuscular Volume 92.2 fL (81-99); Mean Platelet Vol. 10.5 fl (6.2-12.0); Monocyte# 0.63 X10^3/uL; Monocyte% 3.4 % (0-10); NRBC Flagged by Analyzer 0 % (0-5); Neutrophil # 4.41 X10^3/uL (2.7-7.7); Neutrophil % 23.6 % (47-70); POSITIVE DIFFERENTIAL YES; Platelet Count 279 K/mm3 (150-450); RBC Distribution Width CV 14.6 % (11.6-14.6); RBC Distribution Width SD 49.6 fl (35.1-43.9); Red Blood Count 4.72 M/mm3 (4.2-5.4); White Blood Count 18.7 K/mm3 (4.4-11.0)
[2020-06-25 10:35] LABS: Differential Indicated SCAN CRITERIA MET
[2020-06-25 10:36] LABS: Protein:Creat Ratio 438 mg/g CRE (0-200)
[2020-06-25 10:51] LABS: ALB/GLOB Ratio 1.1 RATIO (0.9-2.4); AST(SGOT) 18 U/L (15-37); Alanine Aminotransfer ALT/SGPT 20 U/L (13-56); Albumin, Serum 3.9 g/dL (3.2-5.0); Alkaline Phosphatase 94 U/L (45-117); Anion Gap 3 (5-15); BUN 27 mg/dL (7-18); BUN/Creat Ratio 23.9 RATIO (10-20); Calcium,Total 9.2 mg/dL (8.5-10.1); Chloride 107 mmol/L (98-107); Cholesterol 129 mg/dL (200); Creatinine, Serum 1.13 mg/dL (0.55-1.02); EST Glomerular Filtration Rate 51 mL/min (>60); Est Glom Filt Rate - Afr Amer 62 mL/min (>60); Globulin 3.5 g/dL (2.2-4.2); Glucose 98 mg/dL (74-106); High Density Lipoprotein 61 mg/dL; Phosphorus 3.4 mg/dL (2.5-4.9); Potassium 4.4 mmol/L (3.5-5.1); Protein, Total 7.4 g/dL (6.4-8.2); Sodium Level 141 mmol/L (136-145); Triglycerides 92 mg/dL; Very Low Density Lipoprotein 18 mg/dL (5-40)
[2020-06-27 09:31] LABS: PTHIN 87.4 pg/mL (18.4-80.1)
== END ==
LOC: LAB 08:58
PROVIDERS: PCP Family Medicine; Referring Provider Family Medicine; Visit Provider Family Medicine
DX: E78.5 Hyperlipidemia, unspecified (principal); I12.9 Hypertensive chronic kidney disease with stage 1 through stage 4 chronic kidney disease, or unspecified chronic kidney disease; N18.30 Chronic kidney disease, stage 3 unspecified
CPT/HCPCS: 36415; 80053; 80061; 82570; 83970; 84100; 84156; 85025

== ENCOUNTER → 2020-07-01 16:21 | Outpatient (CLI) | payer OTHER, SELFPAY ==
[2020-06-07 06:47] VITALS: BMI 27.7
[2020-07-01 17:26] LABS: Absolute Lymphocyte Count 11.83 X10^3/uL (0.83-4.51); Absolute Neutrophil Count 5.2 X10^3/uL (2.0-7.7); Basophil# 0.09 X10^3/uL; Basophil% 0.5 % (0-1); Eosinophil# 0.47 X10^3/uL; Eosinophils% 2.6 % (0-5); Hemoglobin 13.3 g/dL (12.0-15.0); Lymphocyte # 11.83 X10^3/ul (4.0); Lymphocyte % 64.5 % (19-41); Mean Corp Hgb Conc 31.7 g/dL (32-36); Mean Corpuscular Hgb 28.9 pg (27.0-32.0); Mean Corpuscular Volume 91.3 fL (81-99); Mean Platelet Vol. 10.8 fl (6.2-12.0); Monocyte# 0.71 X10^3/uL; Monocyte% 3.9 % (0-10); NRBC Flagged by Analyzer 0 % (0-5); Neutrophil % 28.2 % (47-70); POSITIVE DIFFERENTIAL YES; POSITIVE MORPHOLOGY YES; Platelet Count 270 K/mm3 (150-450); RBC Distribution Width CV 14.2 % (11.6-14.6); RBC Distribution Width SD 47.8 fl (35.1-43.9); White Blood Count 18.4 K/mm3 (4.4-11.0)
[2020-07-01 17:31] LABS: Differential Indicated SCAN CRITERIA MET
[2020-07-01 18:27] LABS: Platelet Estimate ADEQUATE (ADEQ); Red Cell Morphology NORM C+C NORMAL (NORM C&C)
== END ==
PROVIDERS: PCP Family Medicine; Referring Provider Family Medicine; Visit Provider Family Medicine
DX: D72.829 Elevated white blood cell count, unspecified (principal)
CPT/HCPCS: 36415; 85025

== ENCOUNTER → 2020-07-29 08:57 | Outpatient (CLI) | payer OTHER, SELFPAY ==
[2020-07-28 15:04] VITALS: BMI 27.8
== END ==
PROVIDERS: PCP Family Medicine; Visit Provider Internal Medicine Medical Oncology
DX: D72.820 Lymphocytosis (symptomatic) (principal)

== ENCOUNTER → 2020-08-11 12:51 | Outpatient (CLI) | payer OTHER, SELFPAY ==
[2020-07-28 15:04] VITALS: BMI 27.8
== END ==
PROVIDERS: PCP Family Medicine; Referring Provider Internal Medicine Medical Oncology; Visit Provider Internal Medicine Medical Oncology
DX: D72.820 Lymphocytosis (symptomatic) (principal)

== ENCOUNTER → 2021-01-10 11:16 | Outpatient (CLI) | payer BC, SELFPAY ==
[2021-01-10 15:18] LABS: Absolute Lymphocyte Count 12.86 X10^3/uL (0.83-4.51); Absolute Neutrophil Count 6.5 X10^3/uL (2.0-7.7); Basophil# 0.07 X10^3/uL; Basophil% 0.3 % (0-1); Eosinophil# 0.46 X10^3/uL; Eosinophils% 2.2 % (0-5); Hematocrit 38.5 % (37-47); Lymphocyte # 12.86 X10^3/ul (0.83-4.51); Lymphocyte % 62.4 % (19-41); Mean Corp Hgb Conc 31.2 g/dL (32-36); Mean Corpuscular Hgb 29.2 pg (27.0-32.0); Mean Corpuscular Volume 93.7 fL (81-99); Mean Platelet Vol. 10.6 fl (6.2-12.0); Monocyte% 3.4 % (0-10); NRBC Flagged by Analyzer 0 % (0-5); Neutrophil # 6.45 X10^3/uL (2.7-7.7); Neutrophil % 31.4 % (47-70); POSITIVE DIFFERENTIAL YES; POSITIVE MORPHOLOGY YES; Platelet Count 315 K/mm3 (150-450); RBC Distribution Width CV 14.2 % (11.6-14.6); RBC Distribution Width SD 48.9 fl (35.1-43.9); Red Blood Count 4.11 M/mm3 (4.2-5.4); White Blood Count 20.6 K/mm3 (4.4-11.0)
[2021-01-10 15:22] LABS: Differential Indicated SCAN CRITERIA MET
[2021-01-10 15:55] LABS: Atypical Lymphocyte 2+ %; Platelet Estimate ADEQUATE (ADEQ); Red Cell Morphology NORM C+C NORMAL (NORM C&C)
[2021-01-10 15:56] LABS: PTHIN 60.4 pg/mL (18.4-80.1)
[2021-01-10 16:08] LABS: Protein, Urine (Random) 70.5 mg/dL (<11.9); Protein:Creat Ratio 313 mg/g CRE (0-200)
[2021-01-10 16:12] LABS: ALB/GLOB Ratio 0.9 RATIO (0.9-2.4); AST(SGOT) 16 U/L (15-37); Alanine Aminotransfer ALT/SGPT 17 U/L (13-56); Albumin, Serum 3.2 g/dL (3.2-5.0); Alkaline Phosphatase 80 U/L (45-117); Anion Gap 6 (5-15); BUN 22 mg/dL (7-18); BUN/Creat Ratio 19.1 RATIO (10-20); Calcium,Total 8.8 mg/dL (8.5-10.1); Chloride 104 mmol/L (98-107); Cholesterol 119 mg/dL (200); Creatinine, Serum 1.15 mg/dL (0.55-1.02); EST Glomerular Filtration Rate 50 mL/min (>60); Est Glom Filt Rate - Afr Amer 61 mL/min (>60); Globulin 3.7 g/dL (2.2-4.2); Glucose 110 mg/dL (74-106); High Density Lipoprotein 45 mg/dL; Potassium 3.7 mmol/L (3.5-5.1); Protein, Total 6.9 g/dL (6.4-8.2); Sodium Level 139 mmol/L (136-145); Triglycerides 174 mg/dL; Very Low Density Lipoprotein 35 mg/dL (5-40)
[2021-01-11 12:32] LABS: Pathologist Review Reviewed
== END ==
PROVIDERS: PCP Family Medicine; Referring Provider Family Medicine; Visit Provider Family Medicine
DX: I10 Essential (primary) hypertension (principal); N25.81 Secondary hyperparathyroidism of renal origin
CPT/HCPCS: 36415; 80053; 80061; 82570; 83970; 84156; 85025

== ENCOUNTER → 2021-12-06 | Outpatient (CLI) | payer MEDICARE, SELFPAY ==
[2021-12-06 11:35] LABS: Mucous, Urine 0 SEEN /hpf (<or=2+)
[2021-12-06 15:39] LABS: Color, Urine Yellow (Yellow); Glucose, Dipstick Normal (Normal); Ketone-Dipstick Negative (Negative); Leukocyte Esterase-Dipstick 500 /ul (Negative); Nitrite-Dipstick Positive (Negative); Occult Blood-Urine 10 /ul (Negative); Protein-Dipstick 30 mg/dl (Negative); Urine Bilirubin Dipstick Negative (Negative); Urine Clarity Sl. Cloudy (Clear); Urine Urobilinogen Normal (Normal)
[2021-12-06 15:50] LABS: Vitamin D,25 Hydroxy 27.2 ng/mL
[2021-12-06 15:56] LABS: Bacteria 4+ /hpf (None Seen); Red Blood Cells-Urine 5-10 SEEN /hpf (0-5); Squamous Epithelial Cells - UA 5-10 SEEN /hpf (5-10); White Blood Cells 25-50 SEEN /hpf (0-5)
[2021-12-06 16:08] LABS: ALB/GLOB Ratio 0.9 RATIO (0.9-2.4); AST(SGOT) 14 U/L (15-37); Alanine Aminotransfer ALT/SGPT 19 U/L (13-56); Albumin, Serum 3.3 g/dL (3.2-5.0); Alkaline Phosphatase 78 U/L (45-117); Anion Gap 7 (5-15); BUN 17 mg/dL (7-18); Calcium,Total 8.5 mg/dL (8.5-10.1); Chloride 108 mmol/L (98-107); Cholesterol 133 mg/dL (200); Creatinine, Serum 1.06 mg/dL (0.55-1.02); EST Glomerular Filtration Rate 55 mL/min (>60); Est Glom Filt Rate - Afr Amer 67 mL/min (>60); Globulin 3.6 g/dL (2.2-4.2); Glucose 82 mg/dL (74-106); High Density Lipoprotein 48 mg/dL; Phosphorus 2.4 mg/dL (2.5-4.9); Potassium 3.6 mmol/L (3.5-5.1); Protein, Total 6.9 g/dL (6.4-8.2); Sodium Level 142 mmol/L (136-145); Thyroid Stim Hormone (TSH) 0.43 uIU/mL (0.358-3.74); Triglycerides 144 mg/dL; Very Low Density Lipoprotein 29 mg/dL (5-40)
[2021-12-06 16:40] LABS: Protein, Urine (Random) 48.4 mg/dL (<11.9); Protein:Creat Ratio 277 mg/g CRE (0-200)
[2021-12-07 09:00] LABS: PTHIN 75.9 pg/mL (18.4-80.1)
== END | disposition home or self-care (01) ==
LOC: MFPLAB 11:28
PROVIDERS: PCP Family Medicine; Visit Provider Family Medicine
DX: I12.9 Hypertensive chronic kidney disease with stage 1 through stage 4 chronic kidney disease, or unspecified chronic kidney disease (principal); N18.30 Chronic kidney disease, stage 3 unspecified
CPT/HCPCS: 36415; 80053; 80061; 81001; 82306; 82570; 83970; 84100; 84156; 84443

== ENCOUNTER → 2021-12-15 | Outpatient (CLI) | payer MEDICARE, SELFPAY ==
--- NOTE | 2021-12-15 11:44 | CYSPIN_PTH ---
PATIENT: FIFI DELANEY LOC: [facility] U#:[id number] AGE/SX: 66/F ROOM: RE12/15/[address]: Dr. David Patel MD : 1955 BED: DIS: 12/15/2021 SPEC #: [id number] RECD: 12/18/21 08:33 STATUS: JAMES WALL #: [id number] MARY: 12/15/21 11:[address]: David Patel DEPT: CYTOLOGY RECD BY: Angelic Wong Tissues: Urine Procedures: Pap Stain (control) Special Stain Group II Cytospin Fluid HEADER OPERATION: Not noted PRE-OP DIAGNOSIS: Hematuria TISSUE SUBMITTED: Urine for cytology DIAGNOSIS CYTOLOGY Urine for cytology (cytospin): Negative for malignant cells ([facility]ou Category II). Acute inflammation. See comment. MARION:lauren 12/18/2021 COMMENT Numerous organisms consistent with bacteria are also noted. The [facility] System for urine cytology diagnostic categorization was used in the evaluation of this case. CYTOLOGY STUDY Slides are reviewed. CYTOLOGY GROSS Received is 60 ml of yellow cloudy fluid labeled with the patient's name and and designated per the requisition as urine. Submitted for cytology preparation. / lauren 12/18/2021 TC:2 CPT: 74255
[2021-12-15 11:46] LABS: Cytology, Body Fluid / CSF SEE PATHOLOGY REPORT
== END | disposition home or self-care (01) ==
LOC: MFPLAB 11:42
PROVIDERS: PCP Family Medicine; Referring Provider Family Medicine; Visit Provider Family Medicine
DX: R31.9 Hematuria, unspecified (principal)
CPT/HCPCS: 87086; 87088; 87186; 88108; 88313

== ENCOUNTER → 2022-02-01 | Outpatient (CLI) | payer MEDICARE, SELFPAY ==
--- NOTE | 2022-02-01 09:00 | CDU_ITS ---
Reason For Study: carotid stenosis Rt. Velocities/BP Lt. Velocities/BP Prox CCA 79.6/22.0 cm/sec. Prox CCA 88.8/27.4 cm/sec. Mid CCA 72.1/20.1 cm/sec. Mid CCA 77.7/20.0 cm/sec. Dist CCA 51.3/15.4 cm/sec. Dist CCA 65.4/16.3 cm/sec. Prox ICA 71.6/18.8 cm/sec. Prox ICA 60.5/20.0 cm/sec. Mid ICA 77.7/23.7 cm/sec. Mid ICA 72.8/21.2 cm/sec. Dist ICA 97.4/31.1 cm/sec. Dist ICA 91.5/29.1 cm/sec. Rt. ICA/CCA = 1.4. Lt. ICA/CCA = 1.2. Prox ECA 187.2/33.6 cm/sec. Prox ECA 174.1/27.0 cm/sec. Rt. Vert. 67.9/28.6 cm/sec. Lt. Vert. 44.7/13.5 cm/sec. Right Extracranial There is homogeneous, smooth atherosclerotic plaque noted in the right common carotid artery. There is homogeneous, smooth atherosclerotic plaque noted in the right internal carotid artery. There is heterogeneous, irregular atherosclerotic plaque noted in the right external carotid artery. Antegrade flow is noted in the right vertebral artery. Left Extracranial There is homogeneous, smooth atherosclerotic plaque noted in the left common carotid artery. There is heterogeneous, irregular atherosclerotic plaque noted in the left internal carotid artery. There is homogeneous, smooth atherosclerotic plaque noted in the left external carotid artery. Antegrade flow is noted in the left vertebral artery. Procedure Carotid Duplex 18543. This is a Carotid Duplex examination using B-mode, color flow and specral Doppler. The exam was diagnostic. Exam performed in department. VL/Carotid Duplex Ultrasound Interpretation Summary Smooth plaque at the proximal right internal carotid artery with less than 50% stenosis Less than 50% stenosis right external carotid artery Heterogenous irregular plaque at the proximal left internal carotid artery with less than 50% stenosis Less than 50% stenosis left external carotid artery Patent and antegrade vertebral arteries bilaterally Ordering Physician: David Patel Performed By: Abel Moctezuma RVT
--- NOTE | 2022-02-01 09:01 | RDU_ITS ---
Reason For Study: renal artery stenosis Right Renal Artery Left Renal Artery Right renal artery ostium Left renal artery ostium 132.2/19.1 265.3/22.0 RSV/EDV. PSV/EDV. Right renal artery proximal Left renal artery proximal PSV/EDV 233.9/41.6 PSV/EDV. 121.6/25.7 . Right renal artery mid 265.3/49.4 Left renal artery mid 142.3/38.6 PSV/EDV. PSV/EDV . Right renal artery distal 80.9/25.7 Left renal artery distal 94.2/34.9 PSV/EDV. PSV/EDV. Right RAR 3.4. Left RAR 1.8. Right Renal Parenchyma Left Renal Parenchyma Upper Pole Medula 28.8/12.2 Left upper pole medulla 28.2/11.8 PSV/EDV. PSV/EDV . Right upper pole medulla EDR .42 . Left upper pole medulla EDR .42 . Right upper pole medulla R.I. .58 . Left upper pole medulla R.I. .58 . Upper Kasi Cortx 28.2/6.1 PSV/EDV. UP Cortex 24.6/9.0 PSV/EDV. Right upper pole cortex EDR .22 . Left upper pole cortex EDR .37 . Right upper pole cortex R.I. .78 . Left upper pole cortex R.I. .63 . Right lower Pole medulla 32.5/13.4 Left lower Pole medulla 22.7/7.2 PSV/EDV . PSV/EDV . Right lower pole medulla EDR .41 . Left lower pole medulla EDR .32 . Right lower pole medulla R.I. .59 . Left lower pole medulla R.I. .68 . Lower Pole Cortex 187.4/8.5 Lower Pole Cortx 11.6/5.5 PSV/EDV. PSV/EDV. Left lower pole cortex EDR .47 . Right lower pole cortex EDR .46 . Left lower pole cortex R.I. .53 . Right lower pole cortex R.I. .54 . Left Renal Hilar Right Renal Hilar LT Hilar avg 35.5/10.9 PSV/EDV . Right Hilar avg 34.9/11.0 PSV/EDV. Left hilar acceleration time 40 Right hilar acceleration time 40 m/sec. m/sec. Left Renal Dimensions Right Renal Dimensions Left kidney size 9.47 cm . Right kidney size 10.7 cm . Left cortical dimension 1.4 cm . Right cortical dimension 1.16 cm . Aorta Proximal abdominal aorta 2.0 x 1.8 cm . Proximal abdominal aorta peak systolic velocity is 77.1 cm/sec . Distal abdominal aorta 1.56 x 1.77 cm . Distal abdominal aorta peak systolic velocity is 65.8 cm/sec . Normal renal veins bilat. VL/Renal Artery Duplex Ultrasound Interpretation Summary Maximal aortic diameter of 2 x 1.8 cm in diameter which is normal. Greater than 60% stenosis right renal artery Right renal length maintained at 10.7 cm Less than 60% stenosis left renal artery Left renal length slightly diminished at 9.47 cm Findings appear to be very similar to the previous study of October 05, 2019 Ordering Physician: David Patel Performed By: Abel Moctezuma RVT
== END | disposition home or self-care (01) ==
LOC: CVS 08:59
PROVIDERS: PCP Family Medicine; Referring Provider Family Medicine; Visit Provider Family Medicine
DX: I65.23 Occlusion and stenosis of bilateral carotid arteries (principal); I70.1 Atherosclerosis of renal artery
CPT/HCPCS: 93880; 93975

== ENCOUNTER 2022-05-15 12:14 | Outpatient (CLI) | payer MEDICARE, SELFPAY ==
[2022-05-15 12:17] LABS: Bacteria 0 SEEN /hpf (None Seen); Mucous, Urine 0 SEEN /hpf (<or=2+); Red Blood Cells-Urine 0 SEEN /hpf (0-5); White Blood Cells 0 SEEN /hpf (0-5)
[2022-05-15 14:40] LABS: Absolute Lymphocyte Count 12.78 X10^3/uL (0.83-4.51); Absolute Neutrophil Count 7.4 X10^3/uL (2.0-7.7); Basophil% 0.5 % (0-1); Eosinophil# 0.48 X10^3/uL; Eosinophils% 2.2 % (0-5); Hemoglobin 13.3 g/dL (12.0-15.0); Lymphocyte # 12.78 X10^3/ul (0.83-4.51); Lymphocyte % 59.2 % (19-41); Mean Corp Hgb Conc 30.9 g/dL (32-36); Mean Corpuscular Volume 93.9 fL (81-99); Mean Platelet Vol. 10.9 fl (6.2-12.0); Monocyte# 0.78 X10^3/uL; Monocyte% 3.6 % (0-10); NRBC Flagged by Analyzer 0 % (0-5); Neutrophil # 7.37 X10^3/uL (2.7-7.7); Neutrophil % 34.2 % (47-70); POSITIVE DIFFERENTIAL YES; POSITIVE MORPHOLOGY YES; Platelet Count 286 K/mm3 (150-450); RBC Distribution Width CV 14.6 % (11.6-14.6); Red Blood Count 4.58 M/mm3 (4.2-5.4); White Blood Count 21.6 K/mm3 (4.4-11.0)
[2022-05-15 14:56] LABS: Differential Indicated SCAN CRITERIA MET
[2022-05-15 15:02] LABS: Color, Urine Yellow (Yellow); Glucose, Dipstick Normal (Normal); Ketone-Dipstick Negative (Negative); Leukocyte Esterase-Dipstick 25 /ul (Negative); Nitrite-Dipstick Negative (Negative); Occult Blood-Urine Negative /ul (Negative); Protein-Dipstick 30 mg/dl (Negative); Specific Gravity, Urine 1.015 (1.002-1.030); Urine Bilirubin Dipstick Negative (Negative); Urine Clarity Clear (Clear); Urine Urobilinogen Normal (Normal)
[2022-05-15 15:10] LABS: Differential Comment SCANNED
[2022-05-15 15:12] LABS: Squamous Epithelial Cells - UA 0-5 SEEN /hpf (5-10)
[2022-05-15 15:27] LABS: ALB/GLOB Ratio 1.1 RATIO (0.9-2.4); AST(SGOT) 27 U/L (15-37); Alanine Aminotransfer ALT/SGPT 24 U/L (13-56); Albumin, Serum 3.9 g/dL (3.2-5.0); Alkaline Phosphatase 80 U/L (45-117); Anion Gap 6 (5-15); BUN 20 mg/dL (7-18); Calcium,Total 9.5 mg/dL (8.5-10.1); Chloride 104 mmol/L (98-107); Cholesterol 104 mg/dL (200); Creatinine, Serum 1.05 mg/dL (0.55-1.02); EST Glomerular Filtration Rate 56 mL/min (>60); Est Glom Filt Rate - Afr Amer 67 mL/min (>60); Globulin 3.6 g/dL (2.2-4.2); Glucose 70 mg/dL (74-106); High Density Lipoprotein 56 mg/dL; Potassium 4.2 mmol/L (3.5-5.1); Protein, Total 7.5 g/dL (6.4-8.2); Sodium Level 138 mmol/L (136-145); Triglycerides 81 mg/dL; Very Low Density Lipoprotein 16 mg/dL (5-40)
[2022-05-15 15:51] LABS: Protein, Urine (Random) 42.4 mg/dL (<11.9); Protein:Creat Ratio 658 mg/g CRE (0-200)
== END 2022-05-15 23:59 | disposition home or self-care (01) ==
LOC: MFPLAB 12:16
PROVIDERS: PCP Family Medicine; Referring Provider Family Medicine; Visit Provider Family Medicine
DX: I12.9 Hypertensive chronic kidney disease with stage 1 through stage 4 chronic kidney disease, or unspecified chronic kidney disease (principal); N18.30 Chronic kidney disease, stage 3 unspecified
CPT/HCPCS: 36415; 80053; 80061; 81001; 82570; 84156; 85025

== ENCOUNTER → 2023-01-03 | Outpatient (CLI) | payer MEDICARE, SELFPAY ==
[2023-01-03 11:23] LABS: Bacteria 0 SEEN /hpf (None Seen); Mucous, Urine 0 SEEN /hpf (<or=2+)
[2023-01-03 15:02] LABS: Color, Urine Yellow (Yellow); Glucose, Dipstick Normal (Normal); Ketone-Dipstick Negative (Negative); Leukocyte Esterase-Dipstick Negative /ul (Negative); Nitrite-Dipstick Negative (Negative); Occult Blood-Urine 10 /ul (Negative); Protein-Dipstick 30 mg/dl (Negative); Specific Gravity, Urine 1.015 (1.002-1.030); Urine Bilirubin Dipstick Negative (Negative); Urine Clarity Sl. Cloudy (Clear); Urine Urobilinogen Normal (Normal)
[2023-01-03 15:03] LABS: Absolute Lymphocyte Count 8.71 X10^3/uL (0.83-4.51); Absolute Neutrophil Count 5.4 X10^3/uL (2.0-7.7); Basophil# 0.07 X10^3/uL; Basophil% 0.5 % (0-1); Eosinophil# 0.38 X10^3/uL; Eosinophils% 2.5 % (0-5); Hematocrit 40.7 % (37-47); Hemoglobin 12.9 g/dL (12.0-15.0); Lymphocyte # 8.71 X10^3/ul (0.83-4.51); Mean Corp Hgb Conc 31.7 g/dL (32-36); Mean Corpuscular Hgb 29.9 pg (27.0-32.0); Mean Corpuscular Volume 94.2 fL (81-99); Mean Platelet Vol. 10.5 fl (6.2-12.0); Monocyte# 0.65 X10^3/uL; Monocyte% 4.3 % (0-10); NRBC Flagged by Analyzer 0 % (0-5); Neutrophil # 5.43 X10^3/uL (2.7-7.7); Neutrophil % 35.4 % (47-70); POSITIVE DIFFERENTIAL YES; POSITIVE MORPHOLOGY YES; Platelet Count 215 K/mm3 (150-450); RBC Distribution Width CV 14.1 % (11.6-14.6); RBC Distribution Width SD 48.8 fl (35.1-43.9); Red Blood Count 4.32 M/mm3 (4.2-5.4); White Blood Count 15.3 K/mm3 (4.4-11.0)
[2023-01-03 15:22] LABS: Amorphous Sediment 1+; Hyaline Cast 0-5 SEEN /lpf (0-5); Red Blood Cells-Urine 0-5 SEEN /hpf (0-5); Squamous Epithelial Cells - UA 0-5 SEEN /hpf (5-10); White Blood Cells 0-5 SEEN /hpf (0-5)
[2023-01-03 15:32] LABS: Vitamin D,25 Hydroxy 57.4 ng/mL
[2023-01-03 15:37] LABS: Protein, Urine (Random) 79.7 mg/dL (<11.9); Protein:Creat Ratio 830 mg/g CRE (0-200)
[2023-01-03 15:38] LABS: Differential Indicated SCAN CRITERIA MET
[2023-01-03 15:44] LABS: ALB/GLOB Ratio 1.1 RATIO (0.9-2.4); AST(SGOT) 16 U/L (15-37); Alanine Aminotransfer ALT/SGPT 22 U/L (13-56); Albumin, Serum 3.6 g/dL (3.2-5.0); Alkaline Phosphatase 76 U/L (45-117); Anion Gap 4 (5-15); BUN 17 mg/dL (7-18); BUN/Creat Ratio 13.8 RATIO (10-20); Calcium,Total 9.6 mg/dL (8.5-10.1); Chloride 105 mmol/L (98-107); Cholesterol 94 mg/dL (200); Creatinine, Serum 1.23 mg/dL (0.55-1.02); EST Glomerular Filtration Rate 46 mL/min (>60); Est Glom Filt Rate - Afr Amer 56 mL/min (>60); Globulin 3.3 g/dL (2.2-4.2); Glucose 77 mg/dL (74-106); High Density Lipoprotein 49 mg/dL; Phosphorus 3.8 mg/dL (2.5-4.9); Potassium 3.7 mmol/L (3.5-5.1); Protein, Total 6.9 g/dL (6.4-8.2); Sodium Level 139 mmol/L (136-145); Thyroid Stim Hormone (TSH) 0.62 uIU/mL (0.358-3.74); Triglycerides 91 mg/dL; Uric Acid 4.3 mg/dL (2.6-6.0); Very Low Density Lipoprotein 18 mg/dL (5-40)
[2023-01-03 15:52] LABS: Anisocytosis RARE; Atypical Lymphocyte 1+ %; Macrocytosis RARE; Platelet Estimate ADEQUATE (ADEQ); Reactive Lymphocyte 1+; Red Cell Morphology N CHROM NORMAL (NORM C&C)
[2023-01-04 08:22] LABS: PTHIN 18.2 pg/mL (18.4-80.1)
== END | disposition home or self-care (01) ==
PROVIDERS: PCP Family Medicine; Referring Provider Family Medicine; Visit Provider Family Medicine
DX: I12.9 Hypertensive chronic kidney disease with stage 1 through stage 4 chronic kidney disease, or unspecified chronic kidney disease (principal); N18.30 Chronic kidney disease, stage 3 unspecified
CPT/HCPCS: 36415; 80053; 80061; 81001; 82306; 82570; 83970; 84100; 84156; 84443; 84550; 85025

== ENCOUNTER → 2023-08-02 | Outpatient (CLI) | payer MEDICARE, SELFPAY ==
--- NOTE | 2023-08-02 11:42 | RAD_ITS ---
INDICATION: COPD EXAMINATION/TECHNIQUE: X-RAY - XR Chest 2 Views COMPARISON: None. FINDINGS: LINES/DEVICES: None. LUNGS: Upper lungs are hyperexpanded and hyperlucent with diffuse interstitial coarsening. No consolidation. No florid interstitial edema or effusion. No pneumothorax. MEDIASTINUM AND CARDIOVASCULAR STRUCTURES: Cardiac silhouette not enlarged. BONES AND SOFT TISSUES: Unremarkable. RAD/Chest PA and Lateral IMPRESSION: Findings consistent with chronic obstructive pulmonary disease. Electronically Signed: Alexandre Wick MD at 5:12 EDT ,
== END | disposition home or self-care (01) ==
PROVIDERS: PCP Family Medicine; Referring Provider Family Medicine; Visit Provider Family Medicine
DX: J18.9 Pneumonia, unspecified organism (principal); J44.9 Chronic obstructive pulmonary disease, unspecified
CPT/HCPCS: 71046

== ENCOUNTER → 2024-06-16 | Outpatient (CLI) | payer MEDICARE, SELFPAY ==
[2024-06-16 12:25] LABS: Bacteria 0 SEEN /hpf (None Seen); Mucous, Urine 0 SEEN /hpf (<or=2+); White Blood Cells 0 SEEN /hpf (0-5)
[2024-06-16 15:44] LABS: Color, Urine Yellow (Yellow); Glucose, Dipstick Normal (Normal); Ketone-Dipstick Negative (Negative); Leukocyte Esterase-Dipstick Negative /ul (Negative); Nitrite-Dipstick Negative (Negative); Occult Blood-Urine Negative /ul (Negative); Protein-Dipstick 15 mg/dl (Negative); Urine Bilirubin Dipstick Negative (Negative); Urine Clarity Clear (Clear); Urine Urobilinogen Normal (Normal)
[2024-06-16 15:58] LABS: Absolute Lymphocyte Count 7.43 X10^3/uL (0.83-4.51); Absolute Neutrophil Count 4.4 X10^3/uL (2.0-7.7); Basophil# 0.08 X10^3/uL; Basophil% 0.6 % (0-1); Eosinophil# 0.38 X10^3/uL; Eosinophils% 2.9 % (0-5); Hematocrit 37.6 % (37-47); Hemoglobin 11.8 g/dL (12.0-15.0); Lymphocyte # 7.43 X10^3/ul (0.83-4.51); Lymphocyte % 57.3 % (19-41); Mean Corp Hgb Conc 31.4 g/dL (32-36); Mean Corpuscular Hgb 29.3 pg (27.0-32.0); Mean Corpuscular Volume 93.3 fL (81-99); Mean Platelet Vol. 10.7 fl (6.2-12.0); Monocyte# 0.62 X10^3/uL; Monocyte% 4.8 % (0-10); NRBC Flagged by Analyzer 0 % (0-5); Neutrophil # 4.42 X10^3/uL (2.7-7.7); Neutrophil % 34.1 % (47-70); POSITIVE DIFFERENTIAL YES; POSITIVE MORPHOLOGY YES; Platelet Count 228 K/mm3 (150-450); RBC Distribution Width CV 15.7 % (11.6-14.6); RBC Distribution Width SD 54.4 fl (35.1-43.9); Red Blood Count 4.03 M/mm3 (4.2-5.4)
[2024-06-16 16:13] LABS: Differential Indicated SCAN CRITERIA MET
[2024-06-16 16:52] LABS: Amorphous Sediment 1+ URATE; Red Blood Cells-Urine 0 SEEN /hpf (0-5); Squamous Epithelial Cells - UA 0-5 SEEN /hpf (5-10)
[2024-06-16 17:08] LABS: Anisocytosis RARE; Macrocytosis RARE; Platelet Estimate ADEQUATE (ADEQ); Reactive Lymphocyte 1+; Red Cell Morphology N CHROM NORMAL (NORM C&C)
[2024-06-16 19:36] LABS: Protein, Urine (Random) 15.9 mg/dL (0.0-12.0); Protein:Creat Ratio 137 mg/g CRE (0-200)
[2024-06-16 20:17] LABS: ALB/GLOB Ratio 1.7 RATIO (0.9-2.4); AST(SGOT) 19 U/L (<=31); Alanine Aminotransfer ALT/SGPT 12 U/L (<=34); Albumin, Serum 3.9 g/dL (3.4-4.8); Alkaline Phosphatase 88 U/L (35-104); Anion Gap 12 (5-15); BUN 22 mg/dL (4-19); BUN/Creat Ratio 17.8 RATIO (10-20); Calcium,Total 9.2 mg/dL (7.6-11.0); Chloride 106 mmol/L (98-108); Cholesterol 178 mg/dL (<=200); Creatinine, Serum 1.22 mg/dL (0.70-1.20); EST Glomerular Filtration Rate 48 (>60); Globulin 2.3 g/dL (2.2-4.2); Glucose 106 mg/dL (70-99); High Density Lipoprotein 59 mg/dL; Low Density Lipoprotein Calc. 92 mg/dL; Magnesium 2.4 mg/dL (1.5-2.2); Phosphorus 3.4 mg/dL (2.7-4.5); Potassium 4.2 mmol/L (3.3-5.1); Protein, Total 6.2 g/dL (5.9-8.4); Sodium Level 141 mmol/L (133-145); Total Bilirubin 0.37 mg/dL (0.00-1.30); Triglycerides 136 mg/dL; Very Low Density Lipoprotein 27 mg/dL (5-40); cholesterol:hdl ratio screen 3.02
[2024-06-16 20:22] LABS: Vitamin D,25 Hydroxy 24.6 ng/mL (30-100)
[2024-06-16 22:10] LABS: PTHIN 45 pg/mL (11-61)
== END | disposition home or self-care (01) ==
LOC: MFPLAB 11:30
PROVIDERS: PCP Family Medicine; Referring Provider Family Medicine; Visit Provider Family Medicine
DX: N25.81 Secondary hyperparathyroidism of renal origin (principal); N18.30 Chronic kidney disease, stage 3 unspecified; I12.9 Hypertensive chronic kidney disease with stage 1 through stage 4 chronic kidney disease, or unspecified chronic kidney disease
CPT/HCPCS: 36415; 80053; 80061; 81001; 82306; 82570; 83735; 83970; 84100; 84156; 85025

== ENCOUNTER → 2024-08-10 | Outpatient (CLI) | payer MEDICARE, SELFPAY ==
--- NOTE | 2024-08-10 09:03 | RDU_ITS ---
Reason For Study Reason For Study: Renal artery stenosis Right Renal Artery Left Renal Artery Right renal artery ostium 112.5/13.9 Left renal artery ostium 76/13.9 PSV/EDV. RSV/EDV. Left renal artery proximal PSV/EDV Right renal artery proximal 123.5/30.3 90.6/19.4 . PSV/EDV. Left renal artery mid 96.1/23 PSV/EDV . Right renal artery mid 118/26.7 PSV/EDV. Left renal artery distal 95.7/28.1 Right renal artery distal 92.9/19.2 PSV/EDV. PSV/EDV. Left RAR 1.69. Right RAR 2.18. Left Renal Parenchyma Right Renal Parenchyma Left upper pole medulla 19.5/5.3 Upper Pole Medula 30/7.5 PSV/EDV. PSV/EDV . Right upper pole medulla EDR 0.2 . Left upper pole medulla EDR 0.3 . Right upper pole medulla R.I. 0.75 . Left upper pole medulla R.I. 0.73 . Upper Kasi Cortx 13.3/5.1 PSV/EDV. UP Cortex 11.4/3.4 PSV/EDV. Right upper pole cortex EDR 0.4 . Left upper pole cortex EDR 0.3 . Right upper pole cortex R.I. 0.62 . Left upper pole cortex R.I. 0.70 . Right lower Pole medulla 26.4/7.7 Left lower Pole medulla 19/3.9 PSV/EDV . PSV/EDV . Left lower pole medulla EDR 0.2 . Right lower pole medulla EDR 0.3 . Left lower pole medulla R.I. 0.80 . Right lower pole medulla R.I. 0.71 . Lower Pole Cortx 15.7/4.3 PSV/EDV. Lower Pole Cortex 17.3/5.5 PSV/EDV. Left lower pole cortex EDR 0.3 . Right lower pole cortex EDR 0.3 . Left lower pole cortex R.I. 0.72 . Right lower pole cortex R.I. 0.68 . Left Renal Hilar Right Renal Hilar LT Hilar avg 60.4/12.2 PSV/EDV . Right Hilar avg 57.3/11.9 PSV/EDV. Left hilar acceleration time 60 m/sec. Right hilar acceleration time 50 m/sec. Left Renal Dimensions Right Renal Dimensions Left kidney size 9.42 cm . Right kidney size 10.56 cm . Left cortical dimension 1.43 cm . Right cortical dimension 1.49 cm . Nonvascularized structure noted on the lower pole of kidney that measures 2.77 x 2.69 cm. Aorta Proximal abdominal aorta 1.95 x 1.99 cm . Proximal abdominal aorta peak systolic velocity is 56.7 cm/sec . Distal abdominal aorta 1.63 x 1.62 cm . Distal abdominal aorta peak systolic velocity is 73.2 cm/sec . VL/Renal Artery Duplex Ultrasound Interpretation Summary Right renal artery patent with normal velocities and no evidence of stenosis. Left renal artery patent with normal velocities and no evidence of stenosis. Right renal vein patent. Left renal vein patent. Right kidney normal in size. Left kidney normal in size. Ordering Physician: David Patel Referring Physician: David Patel Performed By: Alisa Franz RVT
== END | disposition home or self-care (01) ==
LOC: CVS 08:56
PROVIDERS: PCP Family Medicine; Referring Provider Family Medicine; Visit Provider Family Medicine
DX: I70.1 Atherosclerosis of renal artery (principal)
CPT/HCPCS: 93975